=== PATIENT | male | born 1995 | race Caucasian/White ===

== ENCOUNTER 2025-02-12 23:42 | Emergency (ER) | payer MEDICAID ==
[~2025-02-12] VITALS: Ht 188 cm; Wt 160.4 kg
[2025-02-13 00:13] VITALS: BP 128/91; PULSE 120; RESP 18; O2SAT 97
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
[2025-02-13 00:57] VITALS: TEMP 98.6
== END 2025-02-13 00:58 | disposition home or self-care (01) ==
LOC: ER 23:42
DX: Z02.89 Encounter for other administrative examinations (principal); F17.290 Nicotine dependence, other tobacco product, uncomplicated; V43.92XA Unspecified car occupant injured in collision with other type car in traffic accident, initial encounter; Y93.89 Activity, other specified; Y92.89 Other specified places as the place of occurrence of the external cause; Y99.8 Other external cause status
CPT/HCPCS: 99283